=== PATIENT | female | born 2000 ===

== ENCOUNTER 2024-05-14 06:08 | Day surgery (SDC) | payer OTHER ==
[2024-05-10 13:29] LABS: URINE APPEARANCE Clear; URINE BILIRRUBIN Negative (NEGATIVE); URINE BLOOD Negative; URINE COLOR Yellow; URINE GLUCOSE Negative (NEGATIVE); URINE LEUKOCYTE Negative; URINE NITRATE Negative; URINE PROTEIN Negative (NEGATIVE)
[2024-05-10 13:30] LABS: URINE BACTERIA 371.6 uL (0.0-1933); URINE EPITHELIAL CELLS 16.5 uL (0.0-38.8); URINE WBC 3.3 uL (0.0-23.2)
[2024-05-10 13:33] LABS: URINE RBC 1.9 uL (0.0-20.8)
[2024-05-10 13:42] LABS: HEMATOCRIT 38.3 % (36.0-45.00); MEAN CELL VOLUME 85.3 fL (80.00-100.00); PLATELET COUNT 210 K/uL (150-450); RED BLOOD COUNT 4.49 M/uL (4.00-6.00); RED CELL DISTRIBUTION WIDTH 13.7 % (11.5-14.5)
[2024-05-10 14:10] LABS: INR < 0.93; PARTIAL THROMBOPLASTIN TIME 25.7 SECONDS (22.0-34.0)
[2024-05-10 14:11] LABS: PROTHROMBIN TIME 9.8 SECONDS (9.0-11.5)
[2024-05-10 14:16] LABS: BILIRUBIN TOTAL 0.41 mg/dL (0.3-1.2); CALCIUM 9.1 mg/dL (8.5-10.1); CREATININE SERUM 0.79 mg/dL (0.55-1.02); GLOBULINA 3.2 G/DL (2.4-3.5); POTASSIUM 4.3 mEq/L (3.5-5.1); TOTAL PROTEIN 7.2 gm/dL (6.4-8.2)
[~2024-05-14 06:08] MED LIST: CANABIS MEDICINAL; CHLORZOXAZONE; DEXILANT60 MG; ZOFRAN8 MG
[2024-05-14] MEDS ORDERED: LIDOCAINE HCL 1% 20ML VIAL IJ ONE (09:30)
[2024-05-14] MEDS ORDERED: BUPIVACAINE HCL/PF 0.25% 50 ML VIAL IJ ONE (09:30)
[2024-05-14] MEDS ORDERED: CEFOXITIN SODIUM 2,000 MG VIAL IV SCH (09:30)
[2024-05-14] MEDS ORDERED: PERCOCET 5-3251 EACH PO (09:57)
[2024-05-14] MEDS ORDERED: PEPCID AC20 MG PO (09:58)
[2024-05-14] MEDS ORDERED: PROTONIX40 MG PO (09:58)
[2024-05-14] MEDS ORDERED: ZOFRAN8 MG PO (09:58)
[2024-05-14] MEDS ORDERED: DICY20TA PO (09:59)
== END 2024-05-14 13:15 | disposition home or self-care (01) ==
LOC: CIR.AMB 06:08
PROVIDERS: ATTEND Surgery
DX: K81.1 Chronic cholecystitis (principal); R19.4 Change in bowel habit; R10.11 Right upper quadrant pain